=== PATIENT | female | born 1945 | race Caucasian/White ===

== ENCOUNTER → 2017-08-06 15:30 | Outpatient (CLI) | payer MEDICARE ==
[~2017-08-06 15:30] MED LIST: BAYER CHEWABLE81 MG PO; CALCIUM 600+D T1 TA1 PO; EYE DROP; FISH OIL 1,0001 CA1 PO; JAKAFI PO; MULTIPLE VITAMI1 TA1 PO; REVLIMID5 MG PO; VITAMIN B COMPL1 TAB PO; XALATAN 0.0052.5 ML LEFT EYE
== END | disposition home or self-care (01) ==
LOC: D.MAMMO 08:15
DX: Z12.31 Encounter for screening mammogram for malignant neoplasm of breast (principal)

== ENCOUNTER → 2019-08-06 14:30 | Outpatient (CLI) | payer MEDICARE | END | disposition home or self-care (01) | LOC: D.MAMMO 11:00 | PROVIDERS: ATTEND Family Medicine | DX: Z12.31 Encounter for screening mammogram for malignant neoplasm of breast (principal) ==